=== PATIENT | female | born 1985 | race Caucasian/White ===

== ENCOUNTER 2016-10-30 20:28 | Emergency (ER) | payer MEDICAID, OTHER ==
[2016-10-30] MEDS ORDERED: IOPAMIDOL 370 (76%) 100 ML VIAL IV ONE (20:29)
[2016-10-30 21:02] LABS: SPECIFIC GRAVITY 1.015 (1.001-1.030); URINE BILIRUBIN 1+ (NEGATIVE); URINE BLOOD 3+ (NEGATIVE); URINE GLUCOSE (UA) NEGATIVE (NEGATIVE); URINE LEUKOCYTE ESTERASE NEGATIVE (NEGATIVE); URINE NITRITE NEGATIVE (NEGATIVE); URINE PROTEIN TRACE (NEGATIVE); URINE UROBILINOGEN 12 mg/dL (0-1 mg/dl)
[2016-10-30 21:04] LABS: URINE APPEARANCE HAZY; URINE COLOR BROWN
[2016-10-30 21:05] LABS: HCG,QUALITATIVE URINE NEGATIVE
[2016-10-30 21:14] LABS: URINE BACTERIA 1+
[2016-10-30] MEDS ORDERED: HYDROMORPHONE HCL 0.5 MG/0.5 ML SYRINGE ONE (21:39)
[2016-10-30] MEDS ORDERED: LACTATED RINGERS 1,000 ML ONE (21:39)
[2016-10-30] MEDS ORDERED: ONDANSETRON 4 MG/2ML 2 ML VIAL ONE (21:39)
[2016-10-30 21:43] LABS: ABSOLUTE NEUTROPHIL COUNT 10.6 K/mm3 (1.8-7.7); BASO # 0.1 K/mm3 (0.0-0.2); BASO % 0.4 % (0.2-1.0); EOS # 0.1 (0.0-0.5); EOS % 0.8 % (0.9-2.9); HEMATOCRIT 39.9 % (37.0-47.0); HEMOGLOBIN 13.1 gm/l (12.0-16.0); IMM NEUT # 0.1 K/mm3 (0-0.2); IMM NEUT% 0.4 % (0-1); LYMPH # 2.2 (1.0-4.8); LYMPH % 15.4 % (15-45); MEAN CELL VOLUME 89.3 fl (81.0-99.0); MEAN CORPUSCULAR HEMOGLOBIN 29.3 pg (27.0-31.0); MEAN CORPUSCULAR HGB CONC 32.8 g/dl (33.0-37.0); MONO # 1.1 (0.0-0.8); MONO % 7.5 % (4-12); NEUT % 75.5 % (43-75); PLATELET COUNT 237 K/mm3 (130-400); RED CELL DISTRIBUTION WIDTH 13.1 % (11.5-14.5)
[2016-10-30 22:00] LABS: ALB/GLOB RATIO 1.1 (>1.0); CALCIUM 9.4 mg/dL (8.6-10.3)
--- NOTE | 2016-10-30 22:48 | CT ---
Name: MIKE MARTINEZ Exam: CT abdomen pelvis with contrast Comparison: 05/09/2016 History: Diffuse abdominal pain Procedure: Helical CT using multidetector technique was applied to the abdomen and pelvis during intravenous administration of 100 cc Isovue-370. No oral contrast was given per ordering physician. An automated dose reduction technique was used to minimize patient radiation dose. Findings: CT abdomen (contrast enhanced): Lung bases are clear. Heart is not enlarged. There is no pericardial effusion. Liver, gallbladder, bile ducts, pancreas, spleen, adrenal glands, kidneys, aorta, IVC and portal vein are within normal limits. Stomach, small bowel and colon are within normal limits. There is no free air free fluid or adenopathy. Regional skeleton is within normal limits. CT pelvis (contrast enhanced): Bladder is nearly empty. Uterus is normal size and to the right. There is a 8 cm complex solid and cystic left adnexal lesion with a small amount of adjacent inflammatory stranding.. Similar 4.6 cm lesion is noted in the right adnexa. A small amount of enhancement is noted within both of these adnexal lesions. Small bowel, colon and appendix are normal. There is no free air, free fluid or suspicious adenopathy. Impression: 1. 8 cm left and 4.6 cm right complex mixed solid and cystic adnexal lesions. Follow-up ultrasound is strongly recommended. 2. Normal appendix 3. No current evidence for bowel obstruction 4. No free fluid Note: The above report was uploaded to [facility]'s electronic medical records system at 2244 hours.
--- NOTE | 2016-10-31 07:45 | US ---
Exam: Pelvic ultrasound COMPARISON: CT 10/30/2016 INDICATION: Right adnexal cyst, lower abdominal pain. FINDINGS: Transabdominal and transvaginal pelvic ultrasound was obtained. Uterus measures 7.1 x 4.1 x 4.3 cm and is fairly homogeneous in echotexture. No myometrial masses are identified. Endometrium within normal limits measuring up to 9 mm in bilayer thickness the transvaginal exam. Right ovary measures 4.2 x 3.8 x 3.5 cm and is unremarkable; no ovarian or adnexal lesion is seen on the right. The left ovary/adnexa is heterogeneous and enlarged, measuring up to 8.2 x 4.6 x 5.1 cm. Although correlation with recent CT suggests left hydrosalpinx this is not confirmed. There are either 2 adjacent cysts or septated cyst within the left ovary measuring up to 2.5 cm; alternatively this could reflect portion of a hydrosalpinx. Arterial waveforms were seen within the left ovary on the transabdominal imaging but blood flow does appear diminished on the left compared with the right on the transvaginal imaging. There is no free fluid in the pelvis. IMPRESSION: 1. Blood flow in the left ovary appears diminished compared with the right although arterial waveform is demonstrated on the transabdominal imaging. Incomplete left ovarian torsion cannot be excluded, correlate for signs and symptoms of torsion. 2. Hydrosalpinx is suspected on the left but cannot be confirmed on this ultrasound exam. There are either 2 adjacent cysts or septated cysts demonstrated on this ultrasound. 3. Normal right ovary. Preliminary report transmitted to the emergency department from [facility] at 10/31/2016 0139 hours.
== END 2016-10-31 02:01 | disposition home or self-care (01) ==
LOC: ED 20:28
DX: N83.201 Unspecified ovarian cyst, right side (principal); R10.30 Lower abdominal pain, unspecified
CPT/HCPCS: 83690; 81025; 85025; 80053; 81001; 74177; 76856; 76830; 96375; 99284 ×2; 96374; 96361 ×2; J2405; J7120; Q9967; J1170